=== PATIENT | female | born 1995 | race Caucasian/White ===

== ENCOUNTER 2019-08-31 13:40 | Outpatient (CLI) | payer BC, SELFPAY ==
--- NOTE | 2019-08-31 14:05 | ECG_ITS ---
Measurements Intervals [place] Rate: 79 P: -87 WV: 114 QRS: 83 QRSD: 77 T: 28 QT: 380 QTc: 437 Interpretive Statements ECTOPIC ATRIAL RHYTHM BASELINE ARTIFACT- I, II, III, AVR, AVL, AVF, V1-V3 ABNORMAL ECG Electronically Signed On 08-31-2019 14:34:42 DATA ASSISTANT by Lv Hector D.O.
== END 2019-08-31 13:41 | disposition home or self-care (01) ==
LOC: ANHCARD 13:48
PROVIDERS: PCP Internal Medicine; Visit Provider Internal Medicine
DX: R07.89 Other chest pain (principal); R94.31 Abnormal electrocardiogram [ECG] [EKG]
CPT/HCPCS: 93005

== ENCOUNTER → 2020-11-20 15:46 | Outpatient (CLI) | payer BC, SELFPAY ==
--- NOTE | ~2020-11-20 | US_ITS ---
EXAMINATION: US OB <= 14 weeks fetus DATE: 11/20/2020 16:05 INDICATION: Uncertain gestational dates. TECHNIQUE: Real-time transabdominal obstetric ultrasound. FINDINGS: No prior studies for comparison. The uterus measures 10.1 x 6.1 x 7.7 cm. There is an intrauterine gestational sac, with pole id entified. The crown rump length measures 1.92 cm, which correlates with a estimated gestational age of 8 weeks 3 days. heart tones are identified measuring 169 bpm. There are 2 separate areas o f subchorionic hemorrhage anteriorly measuring 3.5 x 1 x 2.9 cm and inferiorly measuring 2.2 x 1.5 x 0.6 cm. Right ovary is not visualized. Left ovary is normal. IMPRESSION: 1. SL IUP with an EGA of 8 weeks, 3 days (EDC by current ultrasound of 06/29/2021). 2: Eaiau-lkialnan-rxhdb subchorionic hemorrhages anteriorly and inferiorly. Reviewed, dictated and finalized at location A. IMPRESSION: 1. SL IUP with an EGA of 8 weeks, 3 days (EDC by current ultrasound of 06/29/19). 2: Uhtsu-ilcfenqp-ywipn subchorionic hemorrhages anteriorly and inferiorly.
== END ==
PROVIDERS: Visit Provider Nurse Practitioner
DX: Z36.87 Encounter for antenatal screening for uncertain dates (principal); Z3A.08 8 weeks gestation of pregnancy
CPT/HCPCS: 76801

== ENCOUNTER → 2020-12-09 16:13 | Outpatient (CLI) | payer BC, SELFPAY ==
--- NOTE | ~2020-12-09 | US_ITS ---
EXAMINATION: US OB limited EXAM DATE: 12/09/2020 16:36 INDICATION: Subchorionic hematoma. Follow-up exam. 1st trimester.. TECHNIQUE: Pelvic obstetrical transabdominal sonogram was performed by a technologist. There are mu ltiple grayscale and Doppler images available for interpretation. Comparison is made to prior examina tion from 11/20/2020. FINDINGS: Uterus measures 13.1 x 6.6 x 7.7 cm. There is intrauterine gestation sac. pole with heart rate confirmed at 151 beats per minute. The 4.2 cm crown-rump length corresponds to estimated gestational age by ultrasound of 11 weeks 1 day, estimated date of confinement 06/29/2021. Yolk sac i s identified. There is no sonographic evidence of subchorionic hemorrhage. The ovaries were not i dentified. IMPRESSION: 1. Live intrauterine gestation, age by ultrasound 11 weeks 1 day. 2. Previously seen subchorionic hematoma no longer identified. Reviewed, dictated and finalized at location G.
== END ==
PROVIDERS: Visit Provider Nurse Practitioner
DX: Z34.91 Encounter for supervision of normal pregnancy, unspecified, first trimester (principal); Z3A.11 11 weeks gestation of pregnancy
CPT/HCPCS: 76815

== ENCOUNTER → 2021-02-02 15:39 | Outpatient (CLI) | payer BC, SELFPAY ==
--- NOTE | ~2021-02-02 | US_ITS ---
EXAMINATION: US OB /maternal detail DATE: 02/02/2021 16:34 INDICATION: Assess anatomy during second trimester . TECHNIQUE: Multiple obstetric sonographic images performed. FINDINGS: There is a single living fetus in vertex presentation. The placenta is anterior and not low-lying wi th caudal margin 3.4 cm from the internal cervical os. Small subchorionic hematomas measuring 2.9 x 1 .9 x 0.8 cm and 1.4 x 1.1 x 1.1 cm. Normal amniotic fluid volume. heart rate of 85-144 beats p er minute (bpm) with mean of before measurements of 122 bpm. The following anatomy was identified as normal: Ventricles, choroid plexus, falx and cava septum pellucidum Cerebellum and cisterna magna Nuchal fold Upper lip Spine Heart Diaphragm Stomach Kidneys Bladder 3 vessel cord and cord insertion Bilateral upper and lower extremities including hands and feet The following biometric data were obtained: BPD: 4.9 cm -> 20 weeks 6 days Head circumference: 17.1 cm -> 19 weeks 5 days Abdominal circumference: 14.6 cm -> 19 weeks 6 days Femur length: 3.0 cm -> 19 weeks 3 days These measurements are concordant. Head circumference to abdominal circumference ratio: 1.18 (normal range 1.08-1.25). Estimated weight: 309 g (+/-) 46 g. or 11 oz. (+/-) 2 oz. IMPRESSION: 1. Single living fetus with vertex presentation with heart rate of 85-144 bpm. 2. Gestational age by ultrasound of 20 weeks 0 day(s) (+/-) 1 week 3 day(s) with ultrasound estimat ed date of delivery (HUNTER) of 06/22/2021. Estimated weight is 85th percentile by Hadlock criteri a when 06/29/2021 is used as the HUNTER. Please correlate with clinical information or earlier ultrasounds for most accurate HUNTER. 3. Normal survey. 2. A couple small subchorionic hematomas. Reviewed, dictated and finalized at location A. IMPRESSION: 1. Single living fetus with vertex presentation with heart rate of 85-14 4 bpm. 2. Gestational age by ultrasound of 20 weeks 0 day(s) (+/-) 1 week 3 day(s) w ith ultrasound estimated date of delivery (HUNTER) of 06/22/2021. Estimated weight is 85th percentile by Hadlock criteria when 06/29/2021 is used as the HUNTER. Please correlate with clinical information or earlier ultrasounds for most acc urate HUNTER. 3. Normal survey. 2. A couple small subchorionic hematomas.
== END ==
PROVIDERS: Visit Provider Obstetrics & Gynecology Gynecology
DX: Z36.9 Encounter for antenatal screening, unspecified (principal); Z3A.20 20 weeks gestation of pregnancy
CPT/HCPCS: 76805

== ENCOUNTER → 2021-03-03 13:02 | Outpatient (CLI) | payer BC, SELFPAY ==
--- NOTE | ~2021-03-03 | US_ITS ---
US OB limited 03/03/2021 13:28 Indication: Subchorionic hemorrhage Procedure: High-resolution Limited obstetrical ultrasound Comparison: Ultrasound dated 02/02/2021 Findings: There is a single living intrauterine in vertex presentation. heart rate is 150 BPM. Amniotic fluid is subjectively normal. Placenta is anterior without previa. There is a smal l subchorionic hemorrhage measuring 1.7 x 1.7 x 0.8 cm, slightly decreased in size compared with prio r study. Impression: 1: Single living intrauterine in vertex presentation. 2: Decreased size of small subchorionic hemorrhage. Reviewed, dictated and finalized at location A. Impression: 1: Single living intrauterine in vertex presentation. 2: Decreased size of small subchorionic hemorrhage.
== END ==
PROVIDERS: Visit Provider Obstetrics & Gynecology Gynecology
DX: O20.8 Other hemorrhage in early pregnancy (principal); Z3A.24 24 weeks gestation of pregnancy
CPT/HCPCS: 76815

== ENCOUNTER 2021-03-25 18:54 | Outpatient (RCR) | payer BC, SELFPAY ==
[2021-03-25 20:13] VITALS: BMI 27.1
== END 2021-06-23 23:59 | disposition home or self-care (01) ==
LOC: ANHOBOP 18:54
PROVIDERS: Visit Provider Obstetrics & Gynecology Gynecology
DX: O36.8120 Decreased fetal movements, second trimester, not applicable or unspecified (principal); Z3A.26 26 weeks gestation of pregnancy
CPT/HCPCS: 59025

== ENCOUNTER → 2021-04-01 13:10 | Outpatient (CLI) | payer BC, SELFPAY ==
--- NOTE | ~2021-04-01 | US_ITS ---
EXAMINATION: US OB limited DATE: 04/01/2021 13:46 INDICATION: Subchorionic hematoma TECHNIQUE: Real-time ultrasound of the pelvis was performed. The interpreting radiologist was not pre sent for the study. COMPARISON: 03/03/2021 FINDINGS: There is a single living fetus in vertex presentation. The placenta is anterior and not low-lying wi th caudal margin approximately 9 cm from the internal cervical os. The prior small subchorionic hemat omas no longer identified. heart rate is 145 beats per minute (bpm). The amniotic fluid volume is subjectively normal. IMPRESSION: 1. Single living fetus in vertex presentation with heart rate of 145 bpm. 2. Normal anterior placenta with resolution of prior subchorionic hematoma. Reviewed, dictated and finalized at location B. IMPRESSION: 1. Single living fetus in vertex presentation with heart rate of 145 bpm . 2. Normal anterior placenta with resolution of prior subchorionic hematoma.
== END ==
PROVIDERS: Visit Provider Obstetrics & Gynecology Gynecology
DX: O36.8910 Maternal care for other specified fetal problems, first trimester, not applicable or unspecified (principal); Z3A.00 Weeks of gestation of pregnancy not specified
CPT/HCPCS: 76815

== ENCOUNTER 2021-05-04 06:54 | Observation (INO) | payer BC, MEDICAID, SELFPAY ==
[2021-05-04] VITALS (8 sets, daily range): BP systolic 105–121; BP diastolic 57–78; PULSE 75–86
[2021-05-04 07:36] LABS: Add Urine Microscopic? YES; Appearance Urine Cloudy (Clear); Bacteria Urine Trace /hpf; Bilirubin Urine Negative (Negative); Blood Urine Negative (Negative); Color Urine Amber (Yellow); Glucose Urine UA Negative (Negative); Ketones Urine Negative (Negative); Leukocyte Esterase Ur 3+ LEU/UL (NEGATIVE); Mucus Urine Heavy /lpf; Nitrate Urine Negative (Negative); Protein Urine 1+ mg/dL (Negative); Specific Grav Ur 1.026 (1.001-1.035); Squamous Epithelial Cell Urine Many /hpf (Few); Urobilinogen Urine Negative mg/dL (<2.0); WBC Urine 51-75 /hpf (0-3)
--- NOTE | 2021-05-04 08:00 | OBADM ---
This patient, Natalya Hayes, admitted to the OB room OB Post 115 for observation. Patient/family oriented to hospital policies and general routines including ID bracelet, bed and alarms, visiting hours, pain management, procedures, bathroom and other care routines, personal items, smoking policy, room service/diet, and visiting hours. Patient/Family are encouraged to report perceived risks to care and to ask questions if they do not understand what they are told or what they should do.
--- NOTE | 2021-05-09 09:41 | P.PNOB_ITS ---
OB - Triage/Final Diagnosis Visit Information Reason for evaluation: threatened labor (with back pain) Comments/Additional reasons for admission: I have assessed the risk for this patient, Natalya Hayes, and determined that she would benefit from observation care. Evaluation Laboratory results: Laboratory Tests 05/04/21 07:20 Urine Color Esthela Urine Appearance Cloudy H Urine pH 6.0 Ur Specific [place] 1.026 Urine Protein 1+ H Urine Glucose (UA) Negative Urine Ketones Negative Ur Blood (Man) Negative Urine Nitrate Negative Urine Bilirubin Negative Urine Urobilinogen Negative Ur Leukocyte Esterase 3+ H Urine RBC 6-10 H Urine WBC 51-75 H Ur Squamous Epith Cells Many H Urine Bacteria Trace Urine Mucus Heavy H
== END 2021-05-04 09:32 | disposition home or self-care (01) ==
PROVIDERS: Admitting Provider Obstetrics & Gynecology Gynecology; Visit Provider Obstetrics & Gynecology Gynecology
DX: O47.03 False labor before 37 completed weeks of gestation, third trimester (principal); Z3A.31 31 weeks gestation of pregnancy
CPT/HCPCS: 81001; 87086; G0378; G0379

== ENCOUNTER 2021-05-27 12:05 | Observation (INO) | payer BC, MEDICAID, SELFPAY ==
[2021-05-27] VITALS (9 sets, daily range): BP systolic 116; BP diastolic 67; PULSE 88–99; O2SAT 100
[2021-05-27 13:31] LABS: Add Urine Microscopic? YES; Appearance Urine Cloudy (Clear); Bacteria Urine Trace /hpf; Bilirubin Urine Negative (Negative); Color Urine Yellow (Yellow); Glucose Urine UA Negative (Negative); Ketones Urine Negative (Negative); Leukocyte Esterase Ur 3+ LEU/UL (Negative); Mucus Urine Rare /lpf; Nitrate Urine Negative (Negative); Protein Urine Negative (Negative); RBC Urine 0-2 /hpf (0-2); Specific Grav Ur 1.018 (1.001-1.035); Squamous Epithelial Cell Urine Many /hpf (Few); Transitional Epi Cells Urine Rare /hpf (None Seen); Urobilinogen Urine Negative mg/dL (<2.0); WBC Urine 31-50 /hpf
[2021-05-27 13:34] LABS: Blood Urine Negative (Negative)
[2021-05-27] MEDS: TERBUTALINE SULFATE 1 MG/ML VIAL 0.25 MG SUB-Q (14:02)
--- NOTE | 2021-05-28 13:31 | P.PNOB_ITS ---
OB - Triage/Final Diagnosis Visit Information Reason for evaluation: threatened labor Comments/Additional reasons for admission: I have assessed the risk for this patient, Natalya Hayes, and determined that she would benefit from observation care. Evaluation Laboratory results: Laboratory Tests 05/27/21 12:54 Urine Color Yellow Urine Appearance Cloudy H Urine pH 6.0 Ur Specific [place] 1.018 Urine Protein Negative Urine Glucose (UA) Negative Urine Ketones Negative Ur Blood (Man) Negative Urine Nitrate Negative Urine Bilirubin Negative Urine Urobilinogen Negative Leukocyte Esterase Rfl 3+ H Urine RBC 0-2 Urine WBC 31-50 H Ur Squamous Epith Cells Many H Ur Transition Epith Cell Rare Urine Bacteria Trace Urine Mucus Rare Vital signs: Vital Signs - 24 hr 05/27/21 14:01 05/27/21 14:06 05/27/21 14:11 Pulse Oximetry 100 100 100 05/27/21 14:16 05/27/21 14:21 05/27/21 14:26 Pulse Oximetry 100 100 100 05/27/21 14:30 05/27/21 14:54 Pulse Oximetry 100 100
== END 2021-05-27 15:45 | disposition home or self-care (01) ==
PROVIDERS: Admitting Provider Obstetrics & Gynecology Gynecology; PCP Internal Medicine; Visit Provider Obstetrics & Gynecology Gynecology
DX: O47.03 False labor before 37 completed weeks of gestation, third trimester (principal); Z3A.35 35 weeks gestation of pregnancy
CPT/HCPCS: 81001; 87086; 96372; G0378; G0379; J3105

== ENCOUNTER 2021-06-23 05:02 | Inpatient (IN) | payer BC, MEDICAID, SELFPAY ==
[2021-06-23] VITALS (186 sets, daily range): BP systolic 79–219; BP diastolic 39–197; PULSE 25–283; RESP 16–18; TEMP 36.8–37.4; O2SAT 74–100; BMI 28.3
--- NOTE | 2021-06-23 05:41 | LDADM ---
This patient, Natalya Hayes, was admitted to Labor/Delivery/Recovery 103 on 06/23/21 at 05:02. Plans for labor, pain management and were discussed with patient. Patient/family oriented to hospital policies and general routines including ID bracelet, bed and alarms, visiting hours, pain management, procedures, bathroom and other care routines, personal items, smoking policy, room service/diet and guest tray routines, infant security routines, and visiting hours. Patient/Family are encouraged to report perceived risks to care and to ask questions if they do not understand what they are told or what they should do. See OBIX for further documentation.
[2021-06-23] MEDS: LACTATED RINGERS 1,000 ML 125 ML IV CONT ×3 (05:47→16:05)
[2021-06-23] MEDS: OXYTOCIN 30 UNITS/NS 500 ML 30 UNITS/500 ML BAG 6 UNITS IV CONT (05:48)
[2021-06-23 06:00] LABS: Basophils Percent Auto 0.5 % (0.2-1.2); Eosinophils Absolute Auto 0.1 K/mm3 (0-0.3); Eosinophils Percent Auto 0.6 % (0-4.4); Hematocrit 34.3 % (37.0-47.0); Hemoglobin 11.6 g/dL (12.0-15.0); Immature Granulocyte Absolute 0.03 K/mm3 (0.00-0.031); Immature Granulocyte Percent A 0.4 % (0-0.5); Lymphocytes Absolute Auto 3.07 K/mm3 (0.9-3.2); Lymphocytes Percent Auto 38.8 % (18.3-44.2); Mean Corpuscular HGB Conc 33.8 g/dl (32-36); Mean Corpuscular Volume 88.6 fl (80-100); Mean Platelet Volume 11.4 fl (7.4-10.4); Monocytes Absolute Auto 0.8 K/mm3 (0.1-0.6); Monocytes Percent Auto 9.8 % (2.6-8.5); Neutrophils Percent Auto 49.9 % (45.5-73.1); Platelet Count Result 250 k/mm3 (150-375); Red Blood Count 3.87 M/mm3 (4.2-5.4); Red Cell Distribution Width 12.8 % (11.5-14.5); White Blood Count 7.9 K/mm3 (4.5-10.0)
--- NOTE | 2021-06-23 06:32 | WPDANESEPP ---
Anes - Eval Pre Procedure Procedure: labor epidural Date/Time: 06/23/21 06:32 Surgeon: jimy Preop Diagnosis: pain during labor Pre Op Diagnosis: IOL Patient Data Age: 26 Gender: F Height: 1.63 m Weight: 75 kg Last Vital Signs Temp 36.8 C 06/23/21 05:31 Pulse 79 06/23/21 06:30 BP 110/76 06/23/21 06:30 Allergies Allergy/AdvReac Type Severity Reaction Status Date / Time No Known Allergies Allergy Verified 02/25/21 13:02 Home Medications Medication Instructions Recorded Confirmed Type ferrous sulfate 15 mg iron (75 0.5 ml PO DAILY 02/25/21 06/23/21 History mg)/mL oral drops prenat.vits,tennille,bqh-mnup-wljbu 1 tablet PO DAILY 02/25/21 06/23/21 History aspirin 81 mg PO DAILY 06/08/21 06/08/21 History cholecalciferol (vitamin D3) 50 mcg PO DAILY 06/08/21 06/08/21 History [Vitamin D3] Laboratory Tests 06/23/21 06/23/21 06/23/21 05:28 05:28 05:28 WBC 7.9 K/mm3 K/mm3 (4.5-10.0) RBC 3.87 M/mm3 L M/mm3 (4.2-5.4) Hgb 11.6 g/dL L g/dL (12.0-15.0) Hct 34.3 % L % (37.0-47.0) MCV 88.6 fl fl (80-100) MCH 30.0 pg pg (26-34) MCHC 33.8 g/dl g/dl (32-36) RDW 12.8 % % (11.5-14.5) Plt Count 250 k/mm3 k/mm3 (150-375) MPV 11.4 fl H fl (7.4-10.4) Immature Gran % (Auto) 0.4 % % (0-0.5) Neut % (Auto) 49.9 % % (45.5-73.1) Lymph % (Auto) 38.8 % % (18.3-44.2) Tyrrell % (Auto) 9.8 % H % (2.6-8.5) Eos % (Auto) 0.6 % % (0-4.4) Baso % (Auto) 0.5 % % (0.2-1.2) Lymph # (Auto) 3.07 K/mm3 K/mm3 (0.9-3.2) [place]rell # (Auto) 0.8 K/mm3 H K/mm3 (0.1-0.6) Eos # (Auto) 0.1 K/mm3 K/mm3 (0-0.3) Baso # (Auto) 0.0 K/mm3 K/mm3 (0.0-0.1) Abs Immat Gran (auto) 0.03 K/mm3 K/mm3 (0.00-0.031) Absolute Neuts (auto) 4.0 K/mm3 K/mm3 (1.3-6.7) Absolute Nucleated RBC 0.0 K/mm3 K/mm3 (0.0-0.012) Nucleated RBC % 0.0 % % (0.0-0.2) RPR Pending HIV 1&2 Ab/P24 Ag 4thGn Pending Patient hx anesthesia problems: none Family hx anesthesia problems: none Results Review: All pre-operative results and documents have been reviewed as part of the pre-operative evaluation. [facility] Past Medical History Medical History (Updated 06/23/21 @ 06:34 by Sofia Cast CRNA) Anxiety and depression Family History Family History Grandparent Family history of lung cancer Family history of heart disease in male family member before age 55 Diabetes mellitus Father Family history of heart disease in male family member before age 55 Diabetes mellitus Hypertension Family history of arthritis Mother Family history of migraine headaches Sibling Family history of seizure disorder Social History Social History (Updated 02/25/21 @ 13:00 by Elena Flores CNA) Smoking status: Never smoker Second hand tobacco smoke exposure: No Alcohol intake: current Substance use: never Spiritual care concerns: No Exam Day of Procedure 06/23/21 06:32
[2021-06-23 06:47] LABS: HIV 1/2 Ab P24 Ag Result Negative (Negative)
--- NOTE | 2021-06-23 07:28 | WPDOBADMIT ---
Obstetrics - Admit Note Admission Note: record reviewed. No pertinent additions to the history and/or any subsequent changes in the physical findings that are not consistent with the expected course of the were found. Additions to the history and/or subsequent changes in the physical findings follow. None.Here for MIL. Cervix /-2. Attempted AROM but no fluid return. Pt. does not tolerate exams well. Will go ahead and get epidural. FHTs reactive.
[2021-06-23 14:38] LABS: Rapid Plasma Reagin Non-Reactive (NonReactive)
--- NOTE | 2021-06-23 14:57 | PM.IMHP ---
H&P: HPI History of Present Illness Date/Time: 06/23/21 14:57 Chief Complaint: failure to descend Narrative: 26 yo at 39 weeks here for MIL this am. Progresses quickly to complete and pushing. Pushed for 2 hours then rested. Minimal descent with additional pushing and now having repetetive late decels when pushes. Vtx at 0 station and appears OP. Recommend to proceed with csection. Agrees to proceed. has been uncomplicated. labs: O+; Rubella immune; HIV -; RPR -;HBSAg -; and GBS -. [facility] Past Medical History Medical History (Updated 06/23/21 @ 15:02 by Huyen Ayala MD) Anxiety and depression Learning disability reads at elementary level Family History Family History Grandparent Family history of lung cancer Family history of heart disease in male family member before age 55 Diabetes mellitus Father Family history of heart disease in male family member before age 55 Diabetes mellitus Hypertension Family history of arthritis Mother Family history of migraine headaches Sibling Family history of seizure disorder Social History Social History (Updated 02/25/21 @ 13:00 by Elena Flores CNA) Smoking status: Never smoker Second hand tobacco smoke exposure: No Alcohol intake: current Substance use: never Spiritual care concerns: No Meds Home Medications and Allergies Home Medications Medication Instructions Recorded Confirmed Type ferrous sulfate 15 mg iron (75 0.5 ml PO DAILY 02/25/21 06/23/21 History mg)/mL oral drops prenat.vits,tennille,vhi-snxs-xikar 1 tablet PO DAILY 02/25/21 06/23/21 History aspirin 81 mg PO DAILY 06/08/21 06/08/21 History cholecalciferol (vitamin D3) 50 mcg PO DAILY 06/08/21 06/08/21 History [Vitamin D3] Allergies Allergy/AdvReac Type Severity Reaction Status Date / Time No Known Allergies Allergy Verified 02/25/21 13:02 Vital Signs Vital Signs - 24 hr 06/23/21 05:31 06/23/21 05:35 06/23/21 06:02 Temperature 98.2 F Pulse Rate 88 101 H Blood Pressure 113/61 104/62 Pulse Oximetry 06/23/21 06:30 06/23/21 07:00 06/23/21 07:30 Temperature Pulse Rate 79 74 164 H Blood Pressure 110/76 104/63 118/78 Pulse Oximetry 06/23/21 08:00 06/23/21 08:09 06/23/21 08:14 Temperature 98.8 F Pulse Rate 141 H Blood Pressure 119/75 Pulse Oximetry 100 06/23/21 08:18 06/23/21 08:19 06/23/21 08:22 Temperature Pulse Rate 103 H Blood Pressure 137/94 H Pulse Oximetry 100 100 06/23/21 08:24 06/23/21 08:25 06/23/21 08:26 Temperature Pulse Rate 99 Blood Pressure 123/84 Pulse Oximetry 100 100 06/23/21 08:28 06/23/21 08:29 06/23/21 08:31 Temperature Pulse Rate 84 92 74 Blood Pressure 133/121 H 115/64 113/70 Pulse Oximetry 99 06/23/21 08:33 06/23/21 08:35 06/23/21 08:38 Temperature Pulse Rate 94 93 124 H Blood Pressure 119/47 L 119/65 99/74 L Pulse Oximetry 100 100 06/23/21 08:40 06/23/21 08:43 06/23/21 08:46 Temperature Pulse Rate 96 91 85 Blood Pressure 114/64 98/71 L 91/68 L Pulse Oximetry 100 06/23/21 08:48 06/23/21 08:51 06/23/21 08:53 Temperature Pulse Rate 90 108 H 82 Blood Pressure 90/66 L 98/52 L 103/62 Pulse Oximetry 100 100 06/23/21 08:56 06/23/21 08:58 06/23/21 09:00 Temperature Pulse Rate 90 123 H 87 Blood Pressure 79/49 L 91/70 L 114/75 Pulse Oximetry 100 06/23/21 09:03 06/23/21 09:04 06/23/21 09:05 Temperature Pulse Rate Blood Pressure Pulse Oximetry 100 89 L 74 L 06/23/21 09:07 06/23/21 09:08 06/23/21 09:09 Temperature Pulse Rate Blood Pressure Pulse Oximetry 90 87 L 74 L 06/23/21 09:12 06/23/21 09:15 06/23/21 09:17 Temperature Pulse Rate 92 Blood Pressure 101/83 Pulse Oximetry 100 100 06/23/21 09:22 06/23/21 09:24 06/23/21 09:26 Temperature Pulse Rate Blood Pressure Pulse Oximetry
--- NOTE | 2021-06-23 15:47 | W.PM.PROC2 ---
Procedure Note - Detailed Date of Procedure 06/23/21 Pre-op Diagnosis Thirty-nine weeks estimated gestational age with failure to descend Post-op Diagnosis same Procedure Performed Primary low-transverse section Surgeon Huyen Ayala MD Anesthesia epidural Findings Female infant in the straight OP position deep in the pelvis 7lb 4oz with Apgars of 8 [id number] 9 [id number] once. Normal-appearing tubes, ovaries, and uterus. Description of Procedure The patient was taken to the operating room and placed under epidural anesthesia in the dorsal supine position with a leftward tilt. Once anesthesia was deemed adequate she was prepped and draped in the usual sterile fashion. A Pfannenstiel skin incision was made with a scalpel and carried down to the underlying layer of fascia. Bleeding vessels in the subcutaneous tissue were made hemostatic using Bovie cautery. The fascial incision was extended laterally using Carnes scissors. [facility] were used to tent the fascia which was then dissected off using blunt and sharp dissection. The peritoneum was entered bluntly and extended with blunt traction. The bladder blade is placed. The vesicouterine peritoneum is tented and entered with Metzenbaum scissors. The bladder flap is extended laterally with scissors and distally blunt dissection. The bladder blade was replaced. The lower uterine segment was incised in a transverse fashion with the scalpel. This is noted to be at the level of the 's shoulder. The incision was extended laterally using blunt traction. The infant's head was brought up into the incision and delivered as the family service assistant applied fundal pressure. The was delivered, the cord was clamped and cut, and the was handed to the waiting OB nurse. The cord blood was taken for gases and lab. The placenta was removed using manual traction. The uterus is cleared of all clots and debris and exteriorized. The right angle was extended slightly downward and this is grasped with an Allis clamp. The midline was grasped with a ring forcep of the lower portion of the incision. The left of midline there is a lateral incision down into the cervix. This base is grasped with an Allis clamp. And the left angle was grasped with a ring forcep. The left of midline incision is closed using 0 Monocryl in a running locked fashion with a 2nd suture to imbricate meeting at the main incision. The uterine incision is then closed using 0 Monocryl in a running locked fashion with the same suture used to imbricate. One additional cytqhp-bj-rnhxy suture was required at the meeting point of the 2 incisions. Good hemostasis was then noted. The cul-de-sac is irrigated and the uterus returned to the abdomen. The gutters were irrigated. The incisions are again inspected and noted to be hemostatic. The hematoma was placed in the space between the bladder flap and the cervical incision. The instruments are removed and the fascia was closed using 0 Vicryl in a running fashion. The subcutaneous tissues are irrigated and made hemostatic using Bovie cautery. The skin is closed using 4-0 Vicryl in a subcuticular fashion. The Dermaflex was placed over the incision. The sponge, needle, and instrument counts are correct per the OR staff. Patient was given Ancef prior to incision. Estimated Blood Loss 825 Drains Yes (Duke catheter) Packing No Pathology yes (Placenta) Complications No immediate complications Condition stable Disposition floor
--- NOTE | 2021-06-23 15:54 | PM.OBDSVD ---
DS: Admitting Diagnosis Discharge Date June 26, 2021 Admitting Diagnosis Medical induction of labor at 39 weeks DS: Discharge Diagnosis Discharge Diagnosis (1) Failure of descent in labor, delivered, current hospitalization: Code(s): O62.2 - Other uterine inertia Status: Acute (2) 39 weeks gestation of : Code(s): Z3A.39 - 39 weeks gestation of Status: Acute (3) delivery delivered: Code(s): O82 - Encounter for delivery without indication Status: Acute OB - DS: Summary OB Procedures : Ultrasound OB Procedures Intrapartum: low cervical, transverse OB Procedures: : None Peripartum Data Delivery Method: Section Procedures: Procedures Operation Date: 06/23/21 14:50 <No data on this case meets the specified criteria> Status at Discharge Functional status at discharge: independent ambulation Overall status at discharge: patient is progressing back to baseline Time Spent with Patient Time attestation: Total time spent providing and/or coordinating discharge services: DS: Data Data Completed and Pending Pending studies at discharge: Pending at discharge 06/23/21 15:18 Surgical [PTH] Routine Labs on day of discharge: Labs from last 24 hours 06/23/21 06/23/21 06/23/21 05:28 05:28 05:28 WBC RBC Hgb Hct MCV MCH MCHC RDW Plt Count MPV Immature Gran % (Auto) Neut % (Auto) Lymph % (Auto) Patrick % (Auto) Eos % (Auto) Baso % (Auto) Lymph # (Auto) Patrick # (Auto) Eos # (Auto) Baso # (Auto) Abs Immat Gran (auto) Absolute Neuts (auto) Absolute Nucleated RBC Nucleated RBC % RPR Non-reactive HIV 1&2 Ab/P24 Ag 4thGn Negative Blood Type O Positive Antibody Screen Negative 06/23/21 05:28 WBC 7.9 RBC 3.87 L Hgb 11.6 L Hct 34.3 L MCV 88.6 MCH 30.0 MCHC 33.8 RDW 12.8 Plt Count 250 MPV 11.4 H Immature Gran % (Auto) 0.4 Neut % (Auto) 49.9 Lymph % (Auto) 38.8 Patrick % (Auto) 9.8 H Eos % (Auto) 0.6 Baso % (Auto) 0.5 Lymph # (Auto) 3.07 Patrick # (Auto) 0.8 H Eos # (Auto) 0.1 Baso # (Auto) 0.0 Abs Immat Gran (auto) 0.03 Absolute Neuts (auto) 4.0 Absolute Nucleated RBC 0.0 Nucleated RBC % 0.0 RPR HIV 1&2 Ab/P24 Ag 4thGn Blood Type Antibody Screen Discharge Plan Discharge Attending physician on discharge: Huyen Ayala Discharging Clinician: Huyne Ayala Anticipated Discharge Date/Time: 06/26/21 15:55 Patient Disposition: Home, Self-Care Activity: may shower, may drive after 2 weeks and pelvic rest Diet: regular Wound Care Instructions: incision open to air Patient Instructions: Antibiotic Form Stand Alone Forms: General Discharge Information Follow-up/Referrals: Huyen Ayala MD [Physician] - Discharge Medications: New hydrocodone-acetaminophen 7.5-325 mg/15 mL solution 15 ml PO Q6H PRN (Reason: pain) Qty: 120 RF: 0 Continued ferrous sulfate [Les-In-Geeta] 15 mg iron (75 mg)/mL drops 0.5 ml PO DAILY RF: 0 prenat.vits,tennille,ixl-xmll-uqqvo Tablet 1 tablet PO DAILY RF: 0 cholecalciferol (vitamin D3) [Vitamin D3] 50 mcg (2,000 unit) Tablet 50 mcg PO DAILY RF: 0 Discontinued aspirin 81 mg Tablet 81 mg PO DAILY RF: 0 Date of admission: 06/23/21 05:02 Primary Care Provider: Gino Sloan Admitting Provider: Huyen Ayala Attending physician on admission: Huyen Ayala Condition: Stable
--- NOTE | 2021-06-23 18:52 | OBPPTRN ---
Patient transferred to post room #292 via stretcher. Support person, Mary (patient's mother) present. Oriented to unit, room, information board, rooming in, admission packet and security measures. Patient verbalizes understanding. Infant in level 2 nursery. Expected to come up this evening.
[2021-06-23] MEDS: DEXTROSE 5%/0.45% SOD CHL 1,000 ML 125 ML IV CONT (19:30)
[2021-06-23] MEDS: Acetaminophen/HYDROcodone ELIXIR (*CRX) 7.5 MG/15 ML UDC 5 MG PO (23:28)
[2021-06-24 04:20] VITALS: BP 112/57; PULSE 99; RESP 16; TEMP 36.9; O2SAT 100
[2021-06-24] MEDS: KETOROLAC 30 MG/ML VIAL (*BKC) IV PUSH (04:23)
[2021-06-24] MEDS: Acetaminophen/HYDROcodone ELIXIR (*CRX) 7.5 MG/15 ML UDC 5 MG PO ×3 (04:24→20:00)
[2021-06-24 05:19] LABS: Basophils Percent Auto 0.4 % (0.2-1.2); Eosinophils Percent Auto 0.1 % (0-4.4); Hemoglobin 8.3 g/dL (12.0-15.0); Immature Granulocyte Absolute 0.03 K/mm3 (0.00-0.031); Immature Granulocyte Percent A 0.3 % (0-0.5); Lymphocytes Percent Auto 17.3 % (18.3-44.2); Mean Corpuscular HGB Conc 33.2 g/dl (32-36); Mean Corpuscular Hemoglobin 30.4 pg (26-34); Mean Corpuscular Volume 91.6 fl (80-100); Mean Platelet Volume 10.3 fl (7.4-10.4); Monocytes Absolute Auto 0.7 K/mm3 (0.1-0.6); Monocytes Percent Auto 6.5 % (2.6-8.5); Neutrophils Absolute Auto 7.9 K/mm3 (1.3-6.7); Neutrophils Percent Auto 75.4 % (45.5-73.1); Platelet Count Result 174 k/mm3 (150-375); Red Blood Count 2.73 M/mm3 (4.2-5.4); Red Cell Distribution Width 12.8 % (11.5-14.5); White Blood Count 10.4 K/mm3 (4.5-10.0)
--- NOTE | 2021-06-24 07:00 | PC.NURSE ---
PT introductions made and plan of care discussed per post op c section, pain management, breast pumping, bottle feeding, daily care activities. PT and mother both received such instructions this shift per one to one discussion, mom baby care guide and demonstrations. PT and mother both appear to have some learning disabilities and deficiencies. social service consult ordered. Both mom and pt verbalized understanding of such care.
--- NOTE | 2021-06-24 08:00 | PC.NURSE ---
Consult with pt., mother reports she wishes to pump and bottle feed. Mother states her pump is at home and will have it delivered to have help with using. Requested mother call out once pump arrives.
[2021-06-24 08:45] VITALS: BP 106/58; PULSE 102; RESP 16; TEMP 36.7; O2SAT 99
--- NOTE | 2021-06-24 10:09 | WPDANLDPN2 ---
Anes-Prog Note L&D Date/Time: 06/24/21 10:09 Comfortable throughout: section Neuraxial method: epidural Epidural/Spinal procedure site: clean & non-tender Neuro status: Neuro function grossly intact. Cardiovascular status: normal Respiratory status: normal Airway patency: baseline Mental status: baseline Post-Op hydration status: normal Vital Signs: Last Vital Signs Temp 36.7 C 06/24/21 08:45 Pulse 102 H 06/24/21 08:45 Resp 16 06/24/21 08:45 BP 106/58 L 06/24/21 08:45 Pulse Ox 99 06/24/21 08:45 Pain score (VAS): 0 I/O: Intake & Output 06/23/21 06/24/21 06/24/21 23:59 07:59 15:59 Intake Total 1440 1240 Output Total 575 1000 Balance 865 240 Post-procedural complaints: none Patient feedback: Patient satisfied with anesthetic care.
--- NOTE | 2021-06-24 10:09 | WPDANLDNPN2 ---
Anes-Prog Note L&D-Neuraxial Date/Time: 06/24/21 10:09 Neuraxial medications: epidural PF morphine Opiod-related complaints: none Patient feedback: Patient satisfied with post-operative pain management.
[2021-06-24] MEDS: DOCUSATE SODIUM LIQ 100 MG/10 ML UDC PO ×2 (10:26→15:56)
[2021-06-24] MEDS: IBUPROFEN SUSPENSION 200 MG/10 ML UDC 600 MG PO ×2 (10:28→15:56)
[2021-06-24 12:00] VITALS: PULSE 91; RESP 16; O2SAT 99
[2021-06-24 12:18] VITALS: BP 105/65; PULSE 91; RESP 16; TEMP 36.8; O2SAT 99
[2021-06-24] MEDS: FERROUS SULFATE LIQUID 325 MG/7.4 ML ELIXIR 324 MG PO (12:56)
[2021-06-24] MEDS: SIMETHICONE 80 MG TAB.CHEW PO (12:57)
--- NOTE | 2021-06-24 14:51 | PCCCNOTE ---
Care Coordination Note. Pt. referred to CC for learning disability. Spoke with pt. and her mother at bedside. Pt. plans to return home with her mother and baby at discharge. FOB is not involved. 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 She also has a supportive sister that will help. Pt. had baby shower and has necessary baby care items. She is setup with WIC and denies any community resource needs: centers or parenting classes. Mother reports she stays at home and will be able to help as needed. Pt. seems to understand basics of taking care of baby and very open to understanding/learning if there is something she doesn't understand. Pt. and mother deny any further CC needs.
--- NOTE | 2021-06-24 15:00 | PC.NURSE ---
Assisted mother with a pump thru her insurance. Offered to assist with pumping. Mother does not want to pump at this time. She would like to shower and wait until tomorrow. Discussed stimulation and milk supply.
[2021-06-24 20:00] VITALS: BP 119/71; PULSE 97; RESP 16; TEMP 36.8; O2SAT 99
[2021-06-25] MEDS: Acetaminophen/HYDROcodone ELIXIR (*CRX) 7.5 MG/15 ML UDC 5 MG PO ×2 (00:57→05:05)
[2021-06-25] MEDS: IBUPROFEN SUSPENSION 200 MG/10 ML UDC 600 MG PO (00:57)
--- NOTE | 2021-06-25 03:01 | P.PNOB_ITS ---
OB - PN: Subj Subjective Date/time seen: 06/24/21 12:21 doing well no complaints OB - PN: Obj Data Labs CBC & Chem 7: 06/24/21 04:34 Labs: Laboratory Results - last 24 hr 06/24/21 04:34 WBC 10.4 H RBC 2.73 L Hgb 8.3 L D Hct 25.0 L MCV 91.6 MCH 30.4 MCHC 33.2 RDW 12.8 Plt Count 174 MPV 10.3 Immature Gran % (Auto) 0.3 Neut % (Auto) 75.4 H Lymph % (Auto) 17.3 L Edwards % (Auto) 6.5 Eos % (Auto) 0.1 Baso % (Auto) 0.4 Lymph # (Auto) 1.80 Edwards # (Auto) 0.7 H Eos # (Auto) 0.0 Baso # (Auto) 0.0 Abs Immat Gran (auto) 0.03 Absolute Neuts (auto) 7.9 H Absolute Nucleated RBC 0.0 Nucleated RBC % 0.0 OB - PN A/P Assessment and Plan (1) delivery delivered: Code(s): O82 - Encounter for delivery without indication Status: Acute Assessment and Plan: continue with pp care. (2) Failure of descent in labor, delivered, current hospitalization: Code(s): O62.2 - Other uterine inertia Status: Acute Time Spent With Patient Time: Total time spent is greater than 50% in coordination of care (as doc umented) at patient's floor/unit and/or counseling patient: Exam Narrative: ff below umbilicus
[2021-06-25 07:35] VITALS: BP 126/76; PULSE 108; RESP 18; TEMP 36.8; O2SAT 98
--- NOTE | 2021-06-25 07:44 | PM.OBPNVD ---
OB - PN: Subj Subjective Date/time seen: 06/25/21 07:44 Patient comments: no complaints and pain well controlled baby status: doing well OB - PN: Obj Data Labs CBC & Chem 7: 06/24/21 04:34 OB - PN A/P Plan day: 2 Plan: routine care, discharge home, follow up 6 weeks (and 1 week) and other (plans micronor for bc) Time Spent With Patient Time: Total time spent is greater than 50% in coordination of care (as documented) at patient's floor/unit and/or counseling patient: Exam Narrative: inc c/d/i : Bimanual exam- vagina & uterus: other (Uterus firm, nt @U)
--- NOTE | 2021-06-25 09:25 | PC.NURSE ---
Patient viewed the discharge video Mother & Baby Care, The First Two Weeks . Patient was given the opportunity and encouraged to ask questions. Patient verbalized understanding of information shared and has been given the mother/baby guide for home reference.
[2021-06-25] MEDS: FERROUS SULFATE LIQUID 325 MG/7.4 ML ELIXIR 324 MG PO (10:49)
[2021-06-26 08:31] VITALS: BP 119/62; PULSE 86; RESP 20; TEMP 36.8; O2SAT 100
== END 2021-06-25 11:18 | disposition home or self-care (01) | DRG 788 ==
LOC: ANHLDR 15:56 → ANHOB2 19:16
PROVIDERS: Admitting Provider Obstetrics & Gynecology Gynecology; PCP Internal Medicine; Visit Provider Obstetrics & Gynecology Gynecology
PROC: 10D00Z1 Extraction of Products of Conception, Low, Open Approach (ICD-10-PCS; CPT 59514; principal; 2021-06-23 14:50)
DX: O77.0 Labor and delivery complicated by meconium in amniotic fluid (principal); Z37.0 Single live birth; Z3A.39 39 weeks gestation of pregnancy; O63.1 Prolonged second stage (of labor); O36.8330 Maternal care for abnormalities of the fetal heart rate or rhythm, third trimester, not applicable or unspecified; O99.344 Other mental disorders complicating childbirth; F41.8 Other specified anxiety disorders; F81.0 Specific reading disorder
CPT/HCPCS: 36415; 85025; 86592; 86703; 86850; 86900; 86901; 88307; A9270; G0432; J1885; J2274; J2590; J2795; J7120

== ENCOUNTER 2022-05-14 19:02 | Emergency (ER) | payer OTHER, SELFPAY ==
[2022-05-14 19:02] VITALS: BP 120/51; PULSE 101; RESP 16; TEMP 37.6; O2SAT 100
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
== END 2022-05-14 19:32 | disposition home or self-care (01) ==
LOC: ANHED 19:26
PROVIDERS: Emergency Provider Nurse Practitioner Family; PCP Internal Medicine
DX: H92.02 Otalgia, left ear (principal); V49.88XA Car occupant (driver) (passenger) injured in other specified transport accidents, initial encounter
CPT/HCPCS: 99281

== ENCOUNTER 2024-08-29 18:28 | Emergency (ER) | payer OTHER, SELFPAY ==
--- OUTSIDE RECORDS SUMMARY | 2024-08-29 18:31 | XMS_ITS | Clinical Summary ---
Author Organization [facility] Address [address] [place] [address] Care Team Providers Care Long Distance Operator Name Role Phone Raimundo Toure MD Primary Care Provider [phone] Allergies No known active allergies Medications No known medications Active Problems Problem Noted Date Diagnosed Date Generalized anxiety disorder 04/24/2024 Assessment & Plan (04/24/2024 1:22 PM CDT): Moods are okay. No longer taking Hydroxyzine due to drowsiness. Advsied there are OTC stress relief gummies she can try. Advised if wanting we can schedule an appointment to discuss anxiety. Annual physical exam 04/24/2024 Assessment & Plan (04/24/2024 1:22 PM CDT): In regard to health maintenance, WWE- UTD Influenza vaccine- declined Eat a healthy diet: focus on lean meats and proteins, more fruits, vegetables and whole grains and low in sugars and fats. Limit red meat and avoid processed meat. Maintain a healthy weight; avoid being overweight. Aim for a normal body mass index (BMI) of 18.5-24.9. Help learning to eat healthier, we can set up appointment with joint cutter machine/scheduling representative. Have an active lifestyle, strive for 30 minutes of moderate exercise 5 times a week and strength or resistance training at least twice a week. Use broad-spectrum (UVA+UVB) sunscreen with SPF 30 or greater, is water resistant, limit time spent in the sun (10 am-4pm), wear hat, wear UV protective clothing, wear sunglasses. Never use a tanning bed. Skin that was irradiated may be more sensitive over your lifetime. Limit alcohol intake, 1 drink per day for a woman and 2 drinks per day for a man. Resolved Problems Problem Noted Date Diagnosed Date Resolved Date Encounter for screening for lipid disorder 04/24/2024 04/24/2024 Immunizations Immunization Administration Dates Next Due DTP 08/18/1998, 6,1994,1994,0 1994 DTaP 08/18/1998, 6,1994,1994,0 1994 Hep A, Pediatric 03/02/2012,12/02/2009 Hep B, Adolescent or Pediatric 1994,1994,1994 HiB 07/29/1995,1994,1994 ,1994 Hib (PRP-D) 07/29/1995,1994,1994 ,1994 Influenza, Unspecified 04/24/2024(Deferr ed: Patient Refused),02/25/2023(Deferred: Patient Refused),01/07/2023(Deferred: Patient Refused),02/25/2022(Deferred: Patient Refused) MMR 08/18/1998,07/29/1995 Meningococcal MCV4P (Menactra) 12/02/2009 OPV 08/18/1998,1994,1994 ,1994 Tdap 02/11/2009 Varicella 02/11/2009,08/18/1998 Surgical History Surgery Date Site/Laterality Comments SECTION Medical History Medical History Date Comments Adhd ADD (attention deficit disorder) Family History Medical History Relation Name Comments Diabetes Father Hypertension Father Relation Name Status Comments Father Alive Mother Alive Social History Tobacco Use Types Packs/Day Years Used Date Smoking Tobacco: Never Smokeless Tobacco: Never Tobacco Cessation:Counseling Given: Not Answered PHQ-2 Answer Date Recorded PHQ-2 Total Score (If total score is 3 or more points, staff should administer the PHQ-9) 0 04/24/2024 Personal Safety Answer Date Recorded Getting School Help Needed Not on file 09/10 Comments Unknown Sex and Gender Information Value Date Recorded Sex Assigned at Not on file Legal Sex Female 8:19 PM CDT Gender Identity Not on file Sexual Orientation Not on file Obstetrics History Last Filed Vital Signs Vital Sign Reading Time Taken Comments Blood Pressure 106/60 04/24/2024 12:50 PM CDT Pulse 74 04/24/2024 12:50 PM CDT Temperature 36.7 C (98.1 F) 04/29/2023 10:18 AM CDT Respiratory Rate 18 04/24/2024 12:50 PM CDT Oxygen Saturation 99% 04/24/2024 12:50 PM CDT Inhaled Oxygen Concentration - - Weight 58 kg (127 lb 12.8 oz) 04/24/2024 12:50 P M CDT Height 160 cm (5' 2.99 ) 04/24/2024 12:50 PM CDT Body Mass Index 22.64 04/24/2024 12:50 PM CDT Plan of Treatment Health Maintenance Due Date Last Done Comments Cervical Cancer Screening 1994 Hepatitis C Screening 1994 DTaP/Tdap/Td Vaccine (7 - Td or Tdap) 02/11/2019 02/11/2009, 08/18/1998, 08/18/1998, Additional history exists Covid-19 Vaccine ( season) 2024 03/28/2021, 03/02/2021 Influenza Vaccine (#1) 2024 Depression Screening 04/24/2025 04/24/2024, 01/08/20 Regular Well Visit/Exam 18-64 04/24/2025 04/24/2024 Hepatitis B Screening Completed 1994 , 1994, 1994 Varicella Vaccines Completed 02/11/2009, 08/18/1998 HPV Vaccines Aged Out No longer eligi ble based on patient's age to complete this topic Pneumococcal vaccine <65 Aged Out No longer eligible based on patient's age to complete this topic Insurance [employer] [facility] Care Teams Long Distance Operator Relationship Specialty Start Date End Date Raimundo Toure MD [address] [place] [address] PCP - General Family Medicine 01/07/23
--- OUTSIDE RECORDS SUMMARY | 2024-08-29 18:31 | XMS_ITS | Referral Summary ---
Author Organization [facility] Address [address] [place] [address] Care Team Providers Care Shoe Repairer Name Role Phone Raimundo Toure MD Primary Care Provider [phone] Allergies No known active allergies Medications No [...] healthier, we can set up appointment with ccna/release of information clerk. Have an active lifestyle, strive for 30 [...] OPV 08/18/1998,1994,1994 ,1994 Tdap 02/11/2009 Varicella 02/11/2009,08/18/1998 Social History Tobacco Use Types Packs/Day Years [...] on file Sexual Orientation Not on file Last Filed Vital Signs Vital Sign Reading [...] 04/24/2024 12:50 PM CDT Plan of Treatment Not on file Insurance [facility] Care Teams Shoe Repairer Relationship Specialty Start Date End [place] [address] PCP - General Family Medicine 01/07/23
--- OUTSIDE RECORDS SUMMARY | 2024-08-29 18:31 | XMS_ITS | Referral Summary ---
Author Organization [facility] Address [address] [place] [address] Care Team Providers Care Toy Painter Name Role Phone Komal Limon MD Unavailable Source Comments [facility],non-owned Affiliates and Associated Physician Practices is amultiple site organization consisting of ambulatory clinics and hospital sitesin [place], [place], [place] and [place]. This disclosure is being madepursuant to the Care Everywhere program and may not contain all information available regarding this patient. Last updated 18.[employer] [facility] Allergies No known active allergies Medications * Be aware that medications may not be up to date on this document. Alwaysverify current medications with the patient. Medication Sig Dispensed Refills Start Date End Date Status methylphenidate (DAYTRANA) 10 MG/9HR patchIndications:ADHD (attention deficit hyperactivity disorder),Encounter for long-term (current) use of medications Apply 1 Patch to skin every morning. 30 Patch 0 10/30/2010 Active Active Problems No known active problems Immunizations Name Administration Dates Next Due DPT 08/18/1998, 6,1994,1994, 1994 HEP A PEDS 2 DOSE 03/02/2012,12/02/2009 HEP B VACCINE, PED/ADOL 1994,1994, HIB BOOSTER 07/29/1995,1994,1994 ,1994 MENINGOCOCCAL CONJUGATE (MCV4P) 12/02/2009 MMR 08/18/1998,07/29/1995 POLIO OPV 08/18/1998,1994,1994 ,1994 TDAP (7yrs+) 02/11/2009 VARICELLA 02/11/2009,08/18/1998 Social History Tobacco Use Types Packs/Day Years Used Date Smoking Tobacco: Passive Smo ke Exposure - Never Smoker Smokeless Tobacco: Never Alcohol Use Standard Drinks/Week Comments Not Asked 0 (1 standard drink = 0.6 oz pur e alcohol) Sex and Gender Information Value Date Recorded Sex Assigned at Not on file Gender Identity Not on file Sexual Orientation Not on file Last Filed Vital Signs Vital Sign Reading Time Taken Comments Blood Pressure 100/58 12/24/2016 11:26 AM CDT Pulse 93 12/24/2016 11:26 AM CDT Temperature 37.2 C (98.9 F) 12/24/2016 11:26 AM CDT Respiratory Rate 16 12/24/2016 11:26 AM CDT Oxygen Saturation 98% 12/24/2016 11:26 AM CDT Inhaled Oxygen Concentration - - Weight 51.3 kg (113 lb) 12/24/2016 11:26 AM CDT Height 160 cm (5' 3 ) 12/24/2016 11:26 AM CDT Body Mass Index 20.02 12/24/2016 11:26 AM CDT Plan of Treatment Not on file Care Teams Toy Painter Relationship Specialty Start Date End Date Komal Limon MD PCP - Pediatrics 08/11/09
--- OUTSIDE RECORDS SUMMARY | 2024-08-29 18:31 | XMS_ITS | Patient Health Summary ---
Author Organization [facility] Address [address] [place] [address] Care Team Providers Care Pc Technician Name Role Phone Komal Limon MD Unavailable Note from [facility],non-owned Affiliates and Associated Physician Practices is amultiple site organization consisting of ambulatory clinics and hospital sitesin [place], [place], [place] and [place]. This disclosure is being madepursuant to the Care Everywhere program and may not contain all information available regarding this patient. Last updated 18.[facility] Allergies No known active allergies Medications * Be aware that medications may not be up to date on this document. Alwaysverify current medications with the patient. * methylphenidate (DAYTRANA) 10 MG/9HR patch(Started 10/30/2010) Apply 1 Patch to skin every morning. Active Problems No known active problems Immunizations * DPT(Given 08/18/1998, 07/29/1995, 1994, 1994, 1994) * HEP A PEDS 2 DOSE(Given 03/02/2012, 12/02/2009) * HEP B VACCINE, PED/ADOL(Given 1994, 1994, 1994) * HIB BOOSTER(Given 07/29/1995, 1994, 1994, 1994) * MENINGOCOCCAL CONJUGATE (MCV4P)(Given 12/02/2009) * MMR(Given 08/18/1998, 07/29/1995) * POLIO OPV(Given 08/18/1998, 1994, 1994, 1994) * TDAP (7yrs+)(Given 02/11/2009) * VARICELLA(Given 02/11/2009, 08/18/1998) Social History Tobacco Use Types Packs/Day Years [...] Mass Index 20.02 12/24/2016 11:26 AM CDT Procedures * URINALYSIS AUTO - POINT OF CARE (AMB) STL(Performed 12/24/2016) Performed for Acute cystitis with hematuria Results * URINALYSIS AUTO - POINT OF CARE (AMB) STL (12/24/2016 11:41 AM CDT) Clarity UA POCT CLOUDY Color UA POCT YELLOW Leukocyte UA 125 Negative Nitrite UA POCT NEG Negative Urobilinogen UA 0.2 0.1 - 1.0 Protein UA POCT 100 Negative pH UA 5.0 5.0 - 8.0 pH units Blood UA 3 Negative Specific Fries UA POCT 1.020 1.002 - 1.030 Ketone UA NEG Negative Bilirubin UA POCT NEG Negative Glucose UA NEG Negative Expiration Date 02/23/18 Lot # [id number] Verified Yes Yes URINE / Unknown 12/24/2016 1 1:41 AM CDT Sharif Tamezjacekendra [employer] ENG[employer] - POINT OF CARE ORDERABLES Care Teams Pc Technician Relationship Specialty Start Date End Date Komal Limon MD PCP - Pediatrics 08/11/09
--- OUTSIDE RECORDS SUMMARY | 2024-08-29 18:31 | XMS_ITS | Clinical Summary ---
Author Organization [facility] Address [address] [place] [address] Care Team Providers Care Opinion Polls Survey Worker Name Role Phone Komal Limon MD Unavailable Source Comments [facility],non-owned Affiliates and Associated Physician Practices is amultiple site organization consisting of ambulatory clinics and hospital sitesin [place], [place], [place] and [place]. This disclosure is being madepursuant to the Care Everywhere program and may not contain all information available regarding this patient. Last updated 18.[facility] Allergies No known active allergies Medications * [...] 12/24/2016 11:26 AM CDT Plan of Treatment Health Maintenance Due Date Last Done Comments PAP SMEAR 1994 HIV SCREENING 2009 HEPATITIS C SCREENING 05/06/2012 DTAP/TDAP/TD VACCINES (7 - Td or Tdap) 02/11/2019 02/11/2009, 08/18/1998, 07/29/1995, Additional history exists COVID-19 VACCINE (2023- season) 2024 INFLUENZA VACCINE (#1) 2024 DEPRESSION SCREENING 06/27/2024 ZOSTER VACCINE (1 of 2) 2044 HEPATITIS B VACCINE Completed 1994, 1994, 1994 HIB VACCINE Completed 07/29/1995, 10/1994, 1994, Additional history exists MENINGOCOCCAL VACCINE Aged Out 12/02/2009 No megan jose eligible based on patient's age to complete this topic HPV VACCINE Aged Out No longer eligi ble based on patient's age to complete this topic MENINGOCOCCAL (Group B) VACCINE Aged Out No longer eligible based on patient's age to complete this topic PNEUMOCOCCAL VACCINE Aged Out No long er eligible based on patient's age to complete this topic Care Teams Opinion Polls Survey Worker Relationship Specialty Start Date End Date Komal Limon MD PCP - Pediatrics 08/11/09
[2024-08-29 18:40] VITALS: BP 123/67; PULSE 72; RESP 20; TEMP 37.3; O2SAT 100
--- NOTE | 2024-08-29 18:49 | ED_ITS ---
HPI - Female Genitourinary General Chief complaint: Urogenital-Female Stated complaint: Urinary Problem Time Seen by Provider: 08/29/24 19:07 Source: patient and RN notes reviewed Mode of arrival: ambulatory Limitations: no limitations History of Present Illness HPI Narrative: 29-year-old female presents with concern for suprapubic discomfort, urgency, frequency. For 2 days. She denies fever, body aches, chills, sweats. Denies nausea, vomiting, back pain. MD elicited complaint: UTI Related Data Allergies Allergy/AdvReac Type Severity Reaction Status Date / Time No Known Allergies Allergy Verified 08/29/24 18:34 Review of Systems Review of Systems: CONSTITUTIONAL: Denies malaise, chills, sweats, or fever. CARDIOVASCULAR: Denies chest pain, palpitations, or edema. RESPIRATORY: Denies cough or dyspnea. GASTROINTESTINAL: Denies abdominal pain, nausea, vomiting, diarrhea GENITOURINARY: Reports dysuria, frequency, urgency, suprapubic pressure. Denies flank pain or hematuria. SKIN: Denies rash or itching. MUSCULOSKELETAL: Denies back pain or myalgia. All systems reviewed & are unremarkable except as noted in HPI and below PMFSH Past Medical History Medical History Anxiety and depression Learning disability reads at elementary level Family History Family History Grandparent Family history of lung cancer Family history of heart disease in male family member before age 55 Diabetes mellitus Father Family history of heart disease in male family member before age 55 Diabetes mellitus Hypertension Family history of arthritis Mother Family history of migraine headaches Sibling Family history of seizure disorder Social History Social History Smoking status: Never smoker Second hand tobacco smoke exposure: No Alcohol intake: current Alcohol use details: social Substance use: never Substance use type: does not use Spiritual care concerns: No Comments At time of signature, agree with nursing past medical, surgical, social and family history. There is no relevant family history pertinent to the presenting complaint Exam Narrative: GENERAL: Well-appearing, well-nourished, and in no acute distress. HEAD: Normocephalic. EYES: PERRLA, conjunctivae clear. NECK: Supple. No lymphadenopathy CHEST: Clear to auscultation. No respiratory distress. HEART: Regular rate and rhythm. ABDOMEN: Soft, nontender upon palpation, nondistended, normal active bowel sounds, no palpable or pulsatile masses, no guarding. No CVA tenderness SKIN: Warm, dry, no rash. NEURO: Alert and oriented x3. PSYCH: Normal mood and affect Course Course Emergency Course: Patient is aware of diagnosis, understands and agrees to treatment plan. Antic ipatory guidance given. Patient agrees to follow-up as directed and is aware of reasons to seek care at the emergency department. Portions of this record may have been created with voice recognition software Level of Care: Express Care Visit Vital Signs Vital signs: Vital Signs Temperature 99.2 F 08/29/24 18:40 Pulse Rate 72 08/29/24 18:40 Respiratory Rate 20 08/29/24 18:40 Blood Pressure 123/67 08/29/24 18:40 Pulse Oximetry 100 08/29/24 18:40 Oxygen Delivery Room Air 08/29/24 18:40 Temperature 99.2 F 08/29/24 18:40 Pulse Rate 72 08/29/24 18:40 Respiratory Rate 20 08/29/24 18:40 Blood Pressure 123/67 08/29/24 18:40 Pulse Oximetry 100 08/29/24 18:40 Oxygen Delivery Room Air 08/29/24 18:40 Reviewed. MDM - Female Genitourinary MDM Narrative Medical decision making narrative: Exam findings and UA show no acute concerns or changes; patient is non-toxic appearing and is in no distress. Patient is appropriate for outpatient treatment and follow-up. Differential Diagnosis Differential diagnosis: Likely urinary tract infection and cystitis Critical Care Time Critical Care Time Critical Care Time: No Discharge Plan Discharge Clinical Impression: Urinary tract infection Patient Disposition: Home, Self-Care Condition: Stable Instructions: Antibiotic Form, Urinary Tract Infection in Women (ED) Additional Instructions: We will send a urine culture to the lab; if the culture identifies an organism that the prescribed antibiotic will not treat, you will receive a phone call from an urgent care staff member and an appropriate antibiotic will be prescribed. -Your symptoms should begin to improve within a day of starting antibiotics. But you should finish all the antibiotic pills you get. Otherwise your infection might come back. -Also recommend: increase water intake. Tylenol/ibuprofen as needed for pain or fever -Follow-up with your primary care provider for urine recheck or seek ER visit if condition worsens with high fever, nausea, vomiting and severe back pain. Patient Language: Iranian Prescriptions: New nitrofurantoin monohyd/m-cryst [Macrobid] 100 mg capsule 100 mg PO Q12H 5 Days Qty: 10 0RF Rx Instructions: must administer with a meal/food Follow-up/Referrals: UNKNOWN,DOCTOR [Primary Care Provider] - Time of Disposition: 19:15
[2024-08-29 18:52] LABS: EDUAAPPEAR Cloudy; EDUABILI Negative (Negative); EDUABLOOD 1+ (Negative); EDUACOLOR1 Yellow; EDUAGLUCOSE Negative (Negative); EDUAKETONE Negative (Negative); EDUALEUKO 2+ (Negative); EDUANITRATE Negative (Negative); EDUAPROTEIN Negative (Negative); EDUAUROBILI 0.2
== END 2024-08-29 19:16 | disposition home or self-care (01) ==
PROVIDERS: Emergency Provider Nurse Practitioner
DX: N39.0 Urinary tract infection, site not specified (principal)
CPT/HCPCS: 81003; 87086; 99213; G0463

== ENCOUNTER 2025-02-15 18:05 | Emergency (ER) | payer OTHER, SELFPAY ==
--- NOTE | 2025-02-15 18:06 | ED_ITS ---
HPI - Female Genitourinary General Chief complaint: Urogenital-Female Stated complaint: Urinary Problem Time Seen by Provider: 02/15/25 18:06 Source: patient Mode of arrival: ambulatory Limitations: no limitations History of Present Illness HPI Narrative: Natalya is a 29-year-old female patient presenting to the clinic today with complaints of a possible bacterial vaginal infection x3 days. She reports she is having some white vaginal discharge that is clumpy. Denies any odor. Denies any changes in soaps, shampoos, or detergents. No concerns for STIs. Last sexual intercourse was February 02, 2025. LMP was January 21. Related Data Allergies Allergy/AdvReac Type Severity Reaction Status Date / Time No Known Allergies Allergy Verified 08/29/24 18:34 Review of Systems Review of Systems: Pertinent positives per HPI. Patient denies any fever, chills, rash, headache, visual changes, dizziness, cough, runny nose, sore throat, shortness of breath, chest pain, palpitations, nausea, vomiting, diarrhea, constipation, abdominal pain, or any urinary issues. PMFSH Past Medical History Medical History Learning disability reads at elementary level Anxiety and depression Family History Family History Grandparent Family history of lung cancer Family history of heart disease in male family member before age 55 Diabetes mellitus Father Family history of heart disease in male family member before age 55 Diabetes mellitus Hypertension Family history of arthritis Mother Family history of migraine headaches Sibling Family history of seizure disorder Social History Social History Smoking status: Never smoker Second hand tobacco smoke exposure: No Alcohol intake: current Alcohol use details: social Substance use: never Substance use type: does not use Spiritual care concerns: No Comments At the time of my signature, I reviewed and agree with the nursing past medical, surgical, social, and family history. There is no relevant family history pertinent to the patient complaint. Exam Narrative: General: Well-developed, well nourished, in no apparent distress Head: Normocephalic, atraumatic. Cardio: Regular rate and rhythm, s1 and s2 normal, no murmur appreciated. Resp: Clear to auscultation bilaterally, no rhonchi, rales, wheezing or rubs. Abdomen: Soft, pliable, bowel sounds present in all quadrants, non-tender to palpation, no CVAT tenderness. : Deferred patient declined exam-is willing to self swab Course Course Emergency Course: Portions of this record may have been created with voice recognition software. Level of Care: Express Care Visit Vital Signs Vital signs: Vital Signs Temperature 36.8 C 02/15/25 18:10 Pulse Rate 79 02/15/25 18:10 Respiratory Rate 18 02/15/25 18:10 Blood Pressure 108/65 02/15/25 18:10 Pulse Oximetry 100 02/15/25 18:10 Oxygen Delivery Room Air 02/15/25 18:10 Temperature 36.8 C 02/15/25 18:10 Pulse Rate 79 02/15/25 18:10 Respiratory Rate 18 02/15/25 18:10 Blood Pressure 108/65 02/15/25 18:10 Pulse Oximetry 100 02/15/25 18:10 Oxygen Delivery Room Air 02/15/25 18:10 Vital signs reviewed MDM - Female Genitourinary MDM Narrative Medical decision making narrative: At the time of visit patient is resting comfortably on the exam table. Patient appears to be nontoxic. Complaints of a possible bacterial vaginal infection x3 days. She reports she is having some white vaginal discharge that is clumpy. Denies any odor. Denies any changes in soaps, shampoos, or detergents. No concerns for STIs. Last sexual intercourse was February 02, 2025. LMP was January 21.Bacterial vaginosis in general culture ordered. Labs: BV and genital culture obtained and sent to the lab Plan: Patient is having vaginal discharge. Thinks that she may have a bacterial infection. Prescription for Flagyl was sent to the pharmacy and will await BV in genital culture. Patient declined having STI testing done at this time. Supportive measures were discussed with the patient and they voiced understanding discharge instructions and agrees to treatment plan. Return precautions reviewed Differential Diagnosis Differential diagnosis: Likely bacterial vaginosis, trichomoniasis, cervicitis and vaginitis Discharge Plan Discharge Clinical Impression: Vaginal discharge Patient Disposition: Home Condition: Stable Instructions: Antibiotic Form, Vaginal Discharge (ED) Additional Instructions: Take metronidazole as prescribed We have tested you for bacterial vaginosis and vaginal yeast. Avoid any sexual activity- includes oral, anal, or vaginal intercourse until you get results back and have completed any additional recommended treatment regimen s. We will contact you if testing is positive and make sure your treatment was appropriate for the type of sexually transmitted infections If symptoms worsen after treatment recommend reevaluation with your PCP or Express care. Patient Language: Nigerien Prescriptions: New metronidazole 500 mg/5 mL suspension 500 mg PO BID 7 Days Qty: 70 0RF Follow-up/Referrals: UNKNOWN,DOCTOR [Primary Care Provider] Time of Disposition: 18:31 Quality NIHSS Nursing Documentation ED NIHSS nursing documentation: reviewed/agree
--- OUTSIDE RECORDS SUMMARY | 2025-02-15 18:07 | XMS_ITS | Clinical Summary ---
Author Organization [facility] - [facility] Address [address] [place] [address] Care Team Providers Care Service Superintendent Name Role Phone Unavailable Primary Care Provider Unavailabl e Social History Tobacco Use Types Packs/Day Years Used Date Smoking Tobacco: Never Assessed Comments Unknown Sex and Gender Information Value Date Recorded Sex Assigned at Not on file Legal Sex Female 12:15 PM CDT Gender Identity Not on file Sexual Orientation Not on file Plan of Treatment Upcoming Encounters Date Type Department Care Team (Late st Contact Info) Description 04/01/2025 1:00 PM CDT Office Visit [facility] [place] [address] [place] [address] Shameka Sam, ANTHONY [address] [place] [address] Health Maintenance Due Date Last Done Comments Cervical Cancer Screening Pa p Smear (Age 30 to 64) Every 3 Years 1994 Annual Physical 1997 Hepatitis C 2012 DTaP, Tdap and Td Vaccines ( 1 - Tdap) 2013 Hepatitis B Vaccines (1 of 3 - 19+ 3-dose series) 2013 HPV Vaccines (1 - 3-dose SCD M series) 2021 COVID-19 Vaccine ( - 2023-2 5 season) 2024 Cervical Cancer Screening Pa p with HPV Testing (Age 30 to 64) Every 5 Years 2024 Cervical Cancer Screening with HPV 2024 Meningococcal B Vaccine Aged Out No l onger eligible based on patient's age to complete this topic Meningococcal Vaccine Aged Out No megan jose eligible based on patient's age to complete this topic Pneumococcal Vaccine: Pediat rics (0 to 5 Years) and At-Risk Patients (6 to 49 Years) Aged Out No longer eligible b ased on patient's age to complete this topic RSV Immunizations Under 20 Months Aged Out No longer eligible based on patient's age to complete this topic Insurance [employer]
--- OUTSIDE RECORDS SUMMARY | 2025-02-15 18:07 | XMS_ITS | Clinical Summary ---
Author Organization [facility] Address [address] [place] [address] Care Team Providers Care Imitation Marble Mechanic Name Role Phone Raimundo Toure MD Primary Care Provider [phone] Allergies No known active allergies Medications No [...] healthier, we can set up appointment with psychiatric aide/building official. Have an active lifestyle, strive for 30 [...] P M CDT Height 160 cm (5' 2.99) 04/24/2024 12:50 PM CDT Body Mass Index 22.64 04/24/2024 12:50 PM CDT Plan of Treatment Health Maintenance Due Date Last Done Comments Cervical Cancer Screening 1994 Hepatitis C Screening 1994 DTaP/Tdap/Td Vaccine (7 - Td or Tdap) 02/11/2019 02/11/2009, 08/18/1998, 08/18/1998, Additional history exists HPV Vaccines (1 - 3-dose SCDM series) 2021 Covid-19 Vaccine ( season) 2024 03/28/2021, 03/02/2021 Influenza Vaccine (#1) 2025 Depression Screening 04/24/2025 04/24/2024, 01/08/20 23 Regular Well Visit/Exam 18-64 04/24/2025 04/24/2024 Hepatitis B Screening Completed 1994 , 1994, 1994 Varicella Vaccines Completed 02/11/2009, 08/18/1998 Pneumococcal vaccine <65 Aged Out No longer eligible based on patient's age to complete this topic Insurance [facility] [facility] Care Teams Imitation Marble Mechanic Relationship Specialty Start Date End Date Raimundo Toure MD [address] [place] [address] PCP - General Family Medicine 01/07/23
--- OUTSIDE RECORDS SUMMARY | 2025-02-15 18:07 | XMS_ITS | Clinical Summary ---
Author Organization [facility] Address [address] [place] [address] Care Team Providers Care Instrument Mechanics Supervisor Name Role Phone Komal Limon MD Unavailable Source Comments [facility],non-owned Affiliates and Associated Physician Practices is amultiple site organization consisting of ambulatory clinics and hospital sitesin [place], [place], [place] and [place]. This disclosure is being madepursuant to the Care Everywhere program and may not contain all information available regarding this patient. Last updated 18.Blabroom Allergies No known active allergies Medications * Be aware that medications may not be up to date on this document. Alwaysverify current medications with the patient. methylphenidate (DAYTRANA) 10 MG/9HR patchIndications:A DHD (attention deficit hyperactivity disorder),Encounte r for long-term (current) use of medications Apply 1 Patch to skin every morning. 30 Patch 0 10/30/2010 Active Active Problems No known active problems Immunizations Immunization Administration Dates Next Due DPT 08/18/1998, 6,1994, 5,1994 HEP A PEDS 2 DOSE 03/02/2012,12/02/2009 HEP B VACCINE, PED/ADOL 1994,1994, HIB BOOSTER 07/29/1995, 5,1994, 5 MENINGOCOCCAL ACWY (MCV4P) VAC IM 12/02/2009 MMR 08/18/1998,07/29/1995 POLIO OPV 08/18/1998, 5,1994, 5 TDAP (7yrs+) 02/11/2009 VARICELLA 02/11/2009,08/18/1998 Social History Tobacco Use Types Packs/Day Years Used Date Smoking Tobacco: Passive Smo ke Exposure - Never Smoker Smokeless Tobacco: Never Alcohol Use Standard Drinks/Week Comments Not Asked 0 (1 standard drink = 0.6 oz pur e alcohol) Comments No Sex and Gender Information Value Date Recorded Sex Assigned at Not on file 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 Gender Identity Not on file Sexual Orientation [...] 11:26 AM CDT Height 160 cm (5' 3) 12/24/2016 11:26 AM CDT Body Mass Index 20.02 12/24/2016 11:26 AM CDT Plan of Treatment Health Maintenance Due Date Last Done Comments HIV SCREENING 2009 HEPATITIS C SCREENING 05/06/2012 DTAP/TDAP/TD VACCINES (7 - Td or Tdap) 02/11/2019 02/11/2009, 08/18/1998, 07/29/1995, Additional history exists HPV VACCINE (1 - 3-dose SCDM series) 2021 COVID-19 VACCINE (2023- season) 2024 DEPRESSION SCREENING 06/27/2024 INFLUENZA VACCINE (#1) 2025 ZOSTER VACCINE (1 of 2) 2044 HEPATITIS B VACCINE Completed 1994, 1994, 1994 HIB VACCINE Completed 07/29/1995, 10/1994, 1994, Additional history exists MENINGOCOCCAL GROUPS A/C/Y/W VACCINE Aged Out 12/02/2009 No longer eligible based on patient's age to complete this topic MENINGOCOCCAL (Group B) VACCINE SHARED DECISION-MAKING Aged Out No longer eligible based on patient's age to complete this topic PNEUMOCOCCAL VACCINE Aged Out No long er eligible based on patient's age to complete this topic Insurance [facility] [employer] [address] [place] [address] Care Teams Instrument Mechanics Supervisor Relationship Specialty Start Date End Date Komal Limon MD PCP - Pediatrics 08/11/09
[2025-02-15 18:10] VITALS: BP 108/65; PULSE 79; RESP 18; TEMP 36.8; O2SAT 100
== END 2025-02-15 18:42 | disposition home or self-care (01) ==
PROVIDERS: Emergency Provider Nurse Practitioner Family
DX: N89.8 Other specified noninflammatory disorders of vagina (principal)
CPT/HCPCS: 87070; 87798; 99213; G0463

== ENCOUNTER 2025-04-15 09:20 | Emergency (ER) | payer OTHER, SELFPAY ==
[2025-04-15 09:28] VITALS: BP 115/56; PULSE 74; RESP 18; TEMP 37.1; O2SAT 100
--- NOTE | 2025-04-15 09:56 | ED_ITS ---
HPI - Headache General Chief Complaint: Headache Stated Complaint: Nausea/Headache Time Seen by Provider: 04/15/25 09:30 Source: patient and RN notes reviewed Mode of arrival: ambulatory Limitations: no limitations History of Present Illness HPI Narrative: [age] year old female presents to [facility] complaining of headache, nausea since yesterday. Patient says she had a headache yesterday, reports a mild hea dache that started yesterday rates it a 4/10, she says she took some aspirin and it resolved. Patient said this morning she woke up with nausea, no vomiting. Patient said the nausea has subsided. Patient denies any vision problems, fevers, buy some chills, upper respiratory symptoms and cough, breathing problems, chest pains, abdominal pain, or any other symptoms. Patient denies any history of migraines or headache problems. Patient called off work today for the nausea. Related Data Home Medications ?Medication ?Instructions ?Recorded ?Confirmed ?Last Taken ?Type No Home Medications 04/15/25 04/15/25 U nknown History Allergies Allergy/AdvReac Type Severity Reaction Status Date / Time No Known Allergies Allergy Verified 04/15/25 09:41 Review of Systems Review of Systems: CONSTITUTIONAL: Denies fever, chills, or sweats. EYES: Denies visual changes, redness, or discharge. ENT: Denies rhinorrhea, congestion, sore throat, or otalgia. CARDIOVASCULAR: Denies chest pain, palpitations, or edema. RESPIRATORY: Denies cough or dyspnea. GASTROINTESTINAL: Denies abdominal pain, vomiting, or diarrhea. Positive for nausea. GENITOURINARY: Denies dysuria or hematuria. SKIN: Denies rash or itching. MUSCULOSKELETAL: Denies back pain, joint pain, or myalgia. NEUROLOGIC: Positive for headache. Negative for numbness, or weakness. PSYCHIATRIC: Denies anxiety or depression. All other systems reviewed are negative, except as documented in HPI. [facility] Past Medical History Medical History Learning disability reads at elementary level Anxiety and depression Family History Family History Grandparent Family history of lung cancer Family history of heart disease in male family member before age 55 Diabetes mellitus Father Family history of heart disease in male family member before age 55 Diabetes mellitus Hypertension Family history of arthritis Mother Family history of migraine headaches Sibling Family history of seizure disorder Social History Social History Smoking status: Never smoker Second hand tobacco smoke exposure: No Alcohol intake: current Alcohol use details: social Substance use: never Substance use type: does not use Spiritual care concerns: No Comments At the time of my signature, I reviewed and agree with the nursing past medical, surgical, social, and family history. There is no relevant family history pertinent to the patient complaint. Exam Narrative: GENERAL: This is a well-nourished, well-developed adult, in no apparent distress. They are non ill-appearing, nontoxic appearing. HEAD: normocephalic, atraumatic. EYES: Sclera clear/white. Conjunctiva normal. Vision is grossly intact. Extraocular movements intact EARS: External ears normal, auditory canals clear and without drainage, TMs normal without perforation. Hearing grossly intact. NOSE: External nose normal with no obvious nasal discharge, nasal turbinates without redness, no rhinorrhea. THROAT: Mucous membranes moist, posterior pharynx clear, without erythema or swelling. Uvula midline. NECK: Neck supple, non-tender without lymphadenopathy, masses or thyromegaly. CARDIOVASCULAR: Regular rate and rhythm without murmurs, gallops, or rubs. RESPIRATORY: Clear to auscultation. Breath sounds equal bilaterally. No wheezes, rales, or rhonchi. GASTROINTESTINAL: Abdomen soft, non-tender, nondistended. SKIN: warm, Dry, intact with no suspicious lesions or rash, good texture and turgor. NEURO: awake, alert, and oriented to person, place and time. There were no obvious focal neurologic abnormalities. EXTREMITIES: No joint tenderness, effusion, or edema noted. BACK: Nontender without deformity. No CVA tenderness. Course Course Emergency Course: Portions of this record may have been created with voice recognition software Level of Care: Express Care Visit Vital Signs Vital signs: Vital Signs Temperature 98.7 F 04/15/25 09:28 Pulse Rate 74 04/15/25 09:28 Respiratory Rate 18 04/15/25 09:28 Blood Pressure 115/56 L 04/15/25 09:28 Pulse Oximetry 100 04/15/25 09:28 Oxygen Delivery Room Air 04/15/25 09:28 Temperature 98.7 F 04/15/25 09:28 Pulse Rate 74 04/15/25 09:28 Respiratory Rate 18 04/15/25 09:28 Blood Pressure 115/56 L 04/15/25 09:28 Pulse Oximetry 100 04/15/25 09:28 Oxygen Delivery Room Air 04/15/25 09:28 Reviewed MDM - Headache MDM Narrative Medical decision making narrative: Patient's symptoms have subsided. Nausea and headache did not appear to be related. No evidence of infection. Patient requesting work note. Patient nontoxic appearing, no apparent distress. Vital signs hemodynamically stable. Advised patient follow-up with PCP as needed. Discussed physical exam findings. Advised supportive measures and signs/symptoms to go to the ER. Pt is appropriate for outpt treatment and f/u. Differential Diagnosis Differential diagnosis: Likely migraine, tension headache, headache and other (Viral syndrome, nausea, nausea vomiting on gastroenteritis) Critical Care Time Critical Care Time Critical Care Time: No Discharge Plan Discharge Clinical Impression: Headache Patient Disposition: Home Condition: Stable Instructions: Antibiotic Form, Acute Headache (ED) Additional Instructions: You may take ibuprofen 600 mg to 800 mg every 6-8 hours. Do not exceed more than 800 mg of ibuprofen per dose. Do not exceed more than 3200 mg ibuprofen in a day. You may take up to 1000 mg Tylenol every 6-8 hours. Do not exceed 1000 mg per dose, do exceed more than 4000 mg of Tylenol in a day. Next follow-up with PCP in 3-5 days. If develops fevers, body aches, chills, abdominal pain, or worsening nausea, vomiting, diarrhea, chest pain, breathing problems, or any serious concerns please go to the ER immediately. Patient Language: Thai Prescriptions: No Action No Home Medications Follow-up/Referrals: UNKNOWN,DOCTOR [Primary Care Provider] Stand Alone Forms: Work/School Release IP Time of Disposition: 09:54
--- OUTSIDE RECORDS SUMMARY | 2025-04-15 10:17 | XMS_ITS | Clinical Summary ---
Author Organization [facility] Address [facility] access [facility] [place] [address] Care Team Providers Care Talent Acquisition Specialist Name Role Phone Shameka Sam NP Primary Care Provider [phone] Allergies No known active allergies Medications No known medications Active Problems No known active problems Encounters Date Type Department Care Team Description 04/12/2025 Results [facility] [place] [address] [address] [place] [address] Shameka Sam, ANTHONY TBGOLD-TUBERCULOSI S TST CELL MEDIATED IMMUNITY 04/09/2025 Orders Only [facility] [place] [address] [facility] [address] [place] [address] Shameka Sam, WASTEWATER ANALYST 04/01/2025 1:00 PM CDT [facility] [place] [address] [place] [address] Shameka Sam, ANTHONY Physical (Here for a physical and to establish care. ); Meet and Greet Provider 04/01/2025 Telephone [facility] [place] [address] [facility] [address] [place] [address] Shameka Sam, WASTEWATER ANALYST Record Request 04/01/2025 Travel from Last 3 Months Immunizations Immunization Administration Dates Next Due Dtp (Generic) 08/18/1998,07/29/1995,1994 ,1994,1994 Hepatitis B Pediatric 1994,1994,04/27 Hib (Generic) 07/29/1995,1994,1994 ,1994 MMR (MMRII) 08/18/1998,07/29/1995 Polio Opv (Generic) 08/18/1998,1994,1994,1994 Tdap (Adacel) 04/01/2025 Varicella (Varivax) 08/18/1998 Family History Medical History Relation Comments Diabetes Father Heart Disease Maternal Grandfather Diabetes Paternal Grandmother Lung Cancer Paternal Grandmother Relation Status Comments Father Maternal Grandfather Paternal Grandmother Social History Tobacco Use Types Packs/Day Years Used Date Smoking Tobacco: Never Smokeless Tobacco: Never Tobacco Cessation:Counseling Given: Not Answered Alcohol Use Standard Drinks/Week Comments Yes 0 (1 standard drink = 0.6 oz pur e alcohol) socially PHQ-2 Answer Date Recorded Patient Health Questionnaire-2 Score 2 04/01/2025 Comments No Sex and Gender Information Value Date Recorded Sex Assigned at Not on file Legal Sex Female 12:15 PM CDT Gender Identity Not on file Sexual Orientation Not on file Last Filed Vital Signs Vital Sign Reading Time Taken Comments Blood Pressure 104/65 04/01/2025 1:11 PM CDT Pulse 73 04/01/2025 1:11 PM CDT Temperature 37.4 C (99.3 F) 04/01/2025 1:11 PM CDT Respiratory Rate 16 04/01/2025 1:11 PM CDT Oxygen Saturation 100% 04/01/2025 1:11 PM CDT Inhaled Oxygen Concentration - - Weight 60.3 kg (133 lb) 04/01/2025 1:11 PM CDT Height 162.6 cm (5' 4) 04/01/2025 1:11 PM CDT Body Mass Index 22.83 04/01/2025 1:11 PM CDT Plan of Treatment Upcoming Encounters Date Type Department Care Team (Late st Contact Info) Description 07/08/2025 4:00 PM CONTACT CENTER DIRECTOR Office Visit [facility] [place] [address] [place] [address] Shameka Sam, WASTEWATER ANALYST [address] [place] [address] Health Maintenance Due Date Last Done Comments Cervical Cancer Screening Pap Smear (Age 30 to 64) Every 3 Years 1994 Annual Physical 1997 Hepatitis C 2012 HPV Vaccines (1 - 3-dose SCDM series) 2021 Cervical Cancer Screening Pap with HPV Testing (Age 30 to 64) Every 5 Years 2024 Cervical Cancer Screening with HPV 2024 COVID-19 Vaccine ( season) 2025 03/28/2021, 03/02/2021 Influenza Adult (#1) 2025 DTaP, Tdap and Td Vaccines (7 - Td or Tdap) 04/01/2035 04/01/2025, 08/18/1998, 07/29/1995, Additional history exists Hepatitis B Vaccines Completed 1994, 1994, 1994 PHQ-2 (Physician [place]) Completed 04/01/2025 Hepatitis A Vaccines Aged Out No long er eligible based on patient's age to complete this topic Meningococcal B Vaccine Aged Out No l onger eligible based on patient's age to complete this topic Meningococcal Vaccine Aged Out No megan jose eligible based on patient's age to complete this topic Pneumococcal Vaccine: Pediatrics (0 to 5 Years) and At-Risk Patients (6 to 49 Years) Aged Out No longer eligible based on patient's age to complete this topic RSV Immunizations Under 20 Months Aged Out No longer eligible based on patient's age to complete this topic Procedures Procedure Name Priority Date/Time Associated Diagnosis Comments TBGOLD-TUBERCULOSIS TST CELL MEDIATED IMMUNITY 04/09/2025 10:22 AM CDT from Last 3 Months Results * TBGOLD-TUBERCULOSIS TST CELL MEDIATED IMMUNITY (04/09/2025 10:22 AM CDT) TB QUANTIFERON(R)-I NCUBATED Incubation performed. [facility] 1 TB QUANTIFERON Negative Negative [facility] 1 Comment: No response to M tuberculosis antigens detected. Infection with M tuberculosis is unlikely, but high risk individuals should be considered for additional testing (ATS/IDSA/CDC Clinical Practice Guidelines, 2017). The reference range is an Antigen minus Nil result of <0.35 IU/mL. Chemiluminescence immunoassay methodology COMMENT Comment [facility] 1 Comment: QuantiFERON-TB Gold Plus is a qualitative indirect test for M tuberculosis infection (including disease) and is intended for use in conjunction with risk assessment, radiography, and other medical and diagnostic evaluations. The QuantiFERON-TB Gold Plus result is determined by subtracting the Nil value from either TB antigen (Ag) value. The Mitogen tube serves as a control for the test. TB1 AG MINUS NIL 0.07 IU/mL [facility] 1 TB2 AG MINUS NIL 0.05 IU/mL [facility] 1 TB ANTIGEN - NIL VALUE 0.05 IU/mL [facility] 1 MITOGEN NIL >10.00 IU/mL [facility] 1 04/09/2025 10:2 2 AM CDT 04/09/2025 Narrative [facility] - 04/11/2025 8:09 PM CDT Performed at: 01 - [facility] [address] [id number] Exchange Administrator: Billy Carrillo PhD, Phone: [phone] Shameka Sam NP LABORATORY Final Resul t Performing Organization Address City/State/[facility] Co de Phone Number [facility] [address] [place] [address] [facility] 1 from Last 3 Months Insurance [employer] Care Teams Talent Acquisition Specialist Relationship Specialty Start Date End Date Shameka Sam NP [address] [facility] [address] [place] [address] PCP - General NURSE PRACTITIONER 04/01/25
--- OUTSIDE RECORDS SUMMARY | 2025-04-15 10:17 | XMS_ITS | Clinical Summary ---
Author Organization [facility] Address [address] [place] [address] Care Team Providers Care Fraud Manager Name Role Phone Raimundo Toure MD Primary Care Provider [phone] Allergies No known active allergies Medications No [...] healthier, we can set up appointment with continuing education instructor/oil changer. Have an active lifestyle, strive for 30 [...] SCDM series) 2021 Covid-19 Vaccine ( season) 2025 03/28/2021, 03/02/2021 Influenza Vaccine (#1) 2025 Depression Screening 04/24/2025 04/24/2024, 01/08/20 23 Regular Well Visit/Exam 18-64 04/24/2025 04/24/2024 Hepatitis B Screening Completed 1994 , 1994, 1994 Varicella Vaccines Completed 02/11/2009, 08/18/1998 Pneumococcal vaccine <65 Aged Out No longer eligible based on patient's age to complete this topic Insurance [employer] [facility] Care Teams Fraud Manager Relationship Specialty Start Date End Date Raimundo Toure MD [address] [place] [address] PCP - General Family Medicine 01/07/23
--- OUTSIDE RECORDS SUMMARY | 2025-04-15 10:17 | XMS_ITS | Clinical Summary ---
Author Organization [facility] Address [address] [place] [address] Care Team Providers Care Quality Control Systems Manager Name Role Phone Komal Limon MD Unavailable Source Comments [facility],non-owned Affiliates and Associated Physician Practices is amultiple site organization consisting of ambulatory clinics and hospital sitesin [place], [place], [place] and [place]. This disclosure is being madepursuant to the Care Everywhere program and may not contain all information available regarding this patient. Last updated 18.[employer] Allergies No known active allergies Medications * [...] on file Legal Sex Female 6:56 AM MINISTER HELPER Gender Identity Not on file Sexual Orientation [...] VACCINE (1 - 3-dose SCDM series) 2021 DEPRESSION SCREENING 06/27/2024 COVID-19 VACCINE ( - 2023- season) 2025 INFLUENZA VACCINE (#1) 2025 ZOSTER VACCINE (1 [...] patient's age to complete this topic Insurance [facility] [employer] [address] [place] [address] [place] [address] Care Teams Quality Control Systems Manager Relationship Specialty Start Date End Date Komal Limon MD PCP - Pediatrics 08/11/09
--- OUTSIDE RECORDS SUMMARY | 2025-04-15 10:17 | XMS_ITS | Encounter Summary ---
Author Organization [facility] Address [facility] [place] [address] Care Team Providers Care Developmental Psychologist Name Role Phone Shameka Sam WEIGHER AND GRADER Primary Care Provider [phone] Encounter Details Date Type Department Care Team (Latest Contact Info) Description 04/12/2025 Results Follow-Up [facility] [address] [place] [address] Shameka Sam NP [address] [facility] [address] [place] [address] TBGOLD-TUBERCULOSIS TST CELL MEDIATED IMMUNITY Social History Tobacco Use Types Packs/Day Years Used Date Smoking Tobacco: Never Smokeless Tobacco: Never Alcohol Use Standard Drinks/Week Comments Yes 0 (1 standard drink = 0.6 oz pur e alcohol) socially PHQ-2 Answer Date Recorded Patient Health Questionnaire-2 Score 2 04/01/2025 Comments No Sex and Gender Information Value Date Recorded Sex Assigned at Not on file Legal Sex Female 12:15 PM CDT Gender Identity Not on file Sexual Orientation Not on file documented as of this encounter Plan of Treatment Upcoming Encounters Date Type Department Care Team (Late st Contact Info) Description 07/08/2025 4:00 PM BUTTER PRODUCTION SUPERVISOR [facility] [place] [address] [place] [address] Shameka Sam, ANTHONY [address] [facility] [address] [place] [address] documented as of this encounter Visit Diagnoses Not on filedocumented in this encounter Additional Health Concerns Assessment Noted Time PHQ-9 Depression Total Score: 9 04/01/20 25 1:01 PM CDT documented as of this encounter Care Teams Developmental Psychologist Relationship Specialty Start Date End Date Shameka Sam, WEIGHER AND GRADER [address] [facility] [address] [place] [address] PCP - General NURSE PRACTITIONER 04/01/25 documented as of this encounter
== END 2025-04-15 10:00 | disposition home or self-care (01) ==
DX: R51.9 Headache, unspecified (principal)
CPT/HCPCS: 99213; G0463